=== PATIENT | male | born 1955 | race Caucasian/White ===

== ENCOUNTER 2024-05-02 10:23 | Day surgery (SDC) | payer MEDICARE, MEDICAID ==
[2024-04-28 12:44] LABS: BASOPHILS % (AUTO) 0.4 % (0-1); EOSINOPHILS # (AUTO) 0.1 X10'3 (0-0.9); EOSINOPHILS % (AUTO) 1.1 % (0-6); HEMATOCRIT 47.2 % (42.0-52.0); HEMOGLOBIN 15.8 g/dl (14.0-17.9); LYMPHOCYTES # (AUTO) 2.3 X10'3 (1.1-4.8); LYMPHOCYTES % (AUTO) 23.9 % (21-51); MEAN CORPUSCULAR HEMOGLOBIN 29.5 PG (27.0-31.0); MEAN CORPUSCULAR HGB CONC 33.5 g/dL (33.0-36.5); MEAN PLATELET VOLUME 9.2 FL (7.4-10.4); MONOCYTES # (AUTO) 0.8 X10'3 (0-0.9); MONOCYTES % (AUTO) 8.1 % (2-12); NEUTROPHILS # (AUTO) 6.3 X10'3 (1.8-7.7); NEUTROPHILS % (AUTO) 66.5 % (42-75); PLATELET COUNT 153 X10'3 (140-440); RED BLOOD COUNT 5.36 X10'6 (4.70-6.10); RED CELL DISTRIBUTION WIDTH 13.7 % (11.5-14.5); WHITE BLOOD COUNT 9.5 X10'3 (4.5-11.0)
[2024-04-28 13:04] LABS: ALBUMIN 3.6 G/DL (3.4-5.0); ANION GAP 4 (8-16); BLOOD UREA NITROGEN 17 MG/DL (7-18); BUN/CREATININE RATIO 20.2 (10.0-20.0); CALCIUM 9.2 MG/DL (8.5-10.1); CHLORIDE 107 MMOL/L (99-107); CHOL/HDL RATIO 2.1 (0.00-4.99); CHOLESTEROL 90 MG/DL (0-200); CREATININE 0.84 MG/DL (0.60-1.10); GLUCOSE 112 MG/DL (70-104); HDL CHOLESTEROL 43 MG/DL (35-60); LDL CHOLESTEROL 45 MG/DL (50-100); POTASSIUM 4.4 MMOL/L (3.5-5.1); SODIUM 138 MMOL/L (135-145); TOTAL CARBON DIOXIDE 26.8 MMOL/L (24-32); TRIGLYCERIDES 58 MG/DL (20-135); eGFR > 90 ML/MIN
[2024-04-28 13:25] LABS: APTT 28 SECONDS (22-32); INR 1.1 INR
[2024-05-02] VITALS (9 sets, daily range): BP systolic 106–127; BP diastolic 68–95; PULSE 89–102; RESP 10–16; TEMP 97.5; O2SAT 92–97
[~2024-05-02] VITALS: Ht 175.3 cm; Wt 110.8 kg
[2024-05-02] MEDS ORDERED: DULA4.5P (10:47)
[2024-05-02] MEDS ORDERED: MULT-1085 PO (10:47)
[2024-05-02] MEDS ORDERED: CARV25TA2 PO (10:47)
[2024-05-02] MEDS ORDERED: INSU100I31 SQ (10:47)
[2024-05-02] MEDS ORDERED: ATOR-2 PO (10:47)
[2024-05-02] MEDS ORDERED: EMPA10TA PO (10:47)
[2024-05-02] MEDS ORDERED: SACU1TAB PO (10:47)
[2024-05-02] MEDS ORDERED: midazolam 1 mg/ML 2ml injection ONE (11:51)
[2024-05-02] MEDS ORDERED: verapamil 2.5 mg/ml inj IV ONE (11:51)
[2024-05-02] MEDS ORDERED: LIDOcaine 1% (10mg/ml) 2ml vial ONE (11:51)
[2024-05-02] MEDS ORDERED: nitroGLYCERIN 500mcg/5mL D5W 5 ML IV ONE (11:52)
[2024-05-02] MEDS ORDERED: iohexol 350MG/ML 100ml bottle IV ONE (11:52)
[2024-05-02] MEDS ORDERED: heparin 1,000unit/ml 10ml vial 10 ML ONE (11:52)
[2024-05-02] MEDS ORDERED: fentaNYL/PF 50MCG/1 ML 2ML syringe ONE (11:52)
[2024-05-02] MEDS: diphenhydrAMINE 25mg capsule PO PRN (11:57)
[2024-05-02] MEDS: normal saline 1,000 ML IV SCH (11:57)
[2024-05-02] MEDS: LORazepam 0.5 MG tablet PO PRN (11:57)
[2024-05-02] MEDS ORDERED: HYDROcodone/acetaminophen 10/325mg tab PO PRN (13:30)
[2024-05-02] MEDS ORDERED: HYDROcodone/acetaminophen 5mg/325mg tablet PO PRN (13:30)
== END 2024-05-02 16:10 | disposition home or self-care (01) ==
LOC: SSTAY O 10:23
PROVIDERS: ATTEND Internal Medicine Interventional Cardiology
DX: R94.39 Abnormal result of other cardiovascular function study (principal); I25.10 Atherosclerotic heart disease of native coronary artery without angina pectoris; I10 Essential (primary) hypertension; E78.5 Hyperlipidemia, unspecified; E11.9 Type 2 diabetes mellitus without complications; I42.9 Cardiomyopathy, unspecified; Z79.899 Other long term (current) drug therapy; Z79.01 Long term (current) use of anticoagulants
CPT/HCPCS: 36415; 80048; 80061; 82948; 85025; 85610; 85730; 93005; 93458; 99152; 99153; A6258; A6402; C1894; J1644; J2003; J2250; J3010; J3490; J7030; Q0163; Q9967; Z7610; 76937